=== PATIENT | male | born 1995 | race Native Hawaiian/Other Pacific Islander ===

== ENCOUNTER 2017-01-31 22:33 | Emergency (ER) | payer OTHER ==
[~2017-01-31] VITALS: Ht 170.2 cm; Wt 61.2 kg
== END 2017-02-01 00:33 | disposition home or self-care (01) ==
LOC: ED 22:33
DX: K02.9 Dental caries, unspecified (principal); K04.7 Periapical abscess without sinus; R68.84 Jaw pain; S02.5XXA Fracture of tooth (traumatic), initial encounter for closed fracture
CPT/HCPCS: 96372; 99283; J1885

== ENCOUNTER 2017-09-10 22:30 | Emergency (ER) | payer OTHER ==
[~2017-09-10] VITALS: Ht 170.2 cm; Wt 65.8 kg
== END 2017-09-10 23:51 | disposition home or self-care (01) ==
LOC: ED 22:30
DX: K08.89 Other specified disorders of teeth and supporting structures (principal)
CPT/HCPCS: 99282

== ENCOUNTER 2019-03-09 20:27 | Emergency (ER) | payer OTHER ==
[~2019-03-09] VITALS: Ht 167.6 cm; Wt 59.0 kg
[2019-03-09 21:15] VITALS: BP 104/72; TEMP 98.4
== END 2019-03-09 21:15 | disposition home or self-care (01) ==
LOC: ED 20:27
DX: K08.89 Other specified disorders of teeth and supporting structures (principal); F17.210 Nicotine dependence, cigarettes, uncomplicated
CPT/HCPCS: 96372; 99283; J0696; J1885

== ENCOUNTER 2019-08-13 15:33 | Emergency (ER) | payer OTHER ==
[~2019-08-13] VITALS: Ht 170.2 cm; Wt 61.2 kg
[2019-08-13 15:58] VITALS: TEMP 97.5
[2019-08-13 17:29] VITALS: BP 118/88
== END 2019-08-13 17:31 | disposition home or self-care (01) ==
LOC: ED 15:33
PROC: 0HQGXZZ Repair Left Hand Skin, External Approach (ICD-10-PCS; principal; 2019-08-13)
DX: S61.211A Laceration without foreign body of left index finger without damage to nail, initial encounter (principal); W29.3XXA Contact with powered garden and outdoor hand tools and machinery, initial encounter
CPT/HCPCS: 90472; 90715; 96372; 99283; J0696; J7040

== ENCOUNTER 2019-11-14 15:03 | Emergency (ER) | payer OTHER ==
[~2019-11-14] VITALS: Ht 167.6 cm; Wt 61.2 kg
[2019-11-14 15:16] VITALS: BP 113/76; TEMP 97.9
== END 2019-11-14 16:40 | disposition home or self-care (01) ==
LOC: ED 15:03
DX: K08.89 Other specified disorders of teeth and supporting structures (principal); F17.210 Nicotine dependence, cigarettes, uncomplicated
CPT/HCPCS: 99282

== ENCOUNTER 2020-09-06 00:49 | Emergency (ER) | payer OTHER ==
[~2020-09-06] VITALS: Ht 167.6 cm; Wt 61.2 kg
[2020-09-06 02:20] VITALS: BP 113/72; TEMP 98.1
== END 2020-09-06 02:20 | disposition home or self-care (01) ==
LOC: ED 00:49
DX: K02.9 Dental caries, unspecified (principal); K08.89 Other specified disorders of teeth and supporting structures; F17.210 Nicotine dependence, cigarettes, uncomplicated
CPT/HCPCS: 96372; 99283; J0696; J1885

== ENCOUNTER 2021-12-14 13:27 | Emergency (ER) | payer OTHER ==
[~2021-12-14] VITALS: Ht 167.6 cm; Wt 59.0 kg
[2021-12-14 14:55] LABS: PLATELET COUNT 288 K/uL (142-355)
[2021-12-14 15:08] LABS: POTASSIUM 3.4 mmol/L (3.6-5.2)
[2021-12-14 16:38] VITALS: BP 122/93; TEMP 98.2
== END 2021-12-14 16:42 | disposition home or self-care (01) ==
LOC: ED 13:27
PROVIDERS: Family Medicine
DX: N20.0 Calculus of kidney (principal); N39.0 Urinary tract infection, site not specified; R73.9 Hyperglycemia, unspecified; Z87.442 Personal history of urinary calculi
CPT/HCPCS: 36415; 80053; 81000; 82150; 83690; 85027; 87088; 96360; 96374; 99284; J1885